=== PATIENT | female | born 1980 | race Caucasian/White ===

== ENCOUNTER → 2021-08-23 | Outpatient (CLI) | payer OTHER | LOC: US 08-18 14:15 → MAMO 08-19 08:00 → US 14:20 | DX: Z12.31 Encounter for screening mammogram for malignant neoplasm of breast (principal); R13.19 Other dysphagia | CPT/HCPCS: 76536; 77063; 77067 ==

== ENCOUNTER → 2021-09-20 | Outpatient (CLI) | payer OTHER | LOC: US 13:30 | DX: R92.8 Other abnormal and inconclusive findings on diagnostic imaging of breast (principal) | CPT/HCPCS: 76641 ==